=== PATIENT | female | born 1955 | race Caucasian/White ===

== ENCOUNTER 2020-02-22 10:07 | Emergency (ER) | payer MEDICARE, MEDICAID, SELFPAY ==
--- NOTE | ~2020-02-22 | XR_ITS ---
EXAMINATION: XR chest 2V DATE: 02/22/2020 10:57 INDICATION: Cough TECHNIQUE: PA and lateral views of the chest are obtained. COMPARISON: 04/23/2018 FINDINGS: The lungs are free of acute opacities. There is no pleural effusion or pneumothorax. The ca rdiomediastinal silhouette is normal. There are bridging osteophytes at multiple levels in the spine, consistent with diffuse idiopathic skeletal hyperostosis (DISH). Surgical clips in the right upper q uadrant are likely from prior cholecystectomy. IMPRESSION: 1. No acute cardiopulmonary abnormality. Reviewed, dictated and finalized at location A. [employer]
[2020-02-22 10:22] VITALS: BP 141/58; PULSE 93; RESP 24; TEMP 37.6; O2SAT 95
--- NOTE | 2020-02-22 10:51 | ED.GENADULT ---
HPI - General Adult General Chief complaint: Upper Respiratory Infection Stated complaint: Cough,Fever Time Seen by Provider: 02/22/20 10:41 Source: patient and RN notes reviewed Mode of arrival: ambulatory Limitations: no limitations History of Present Illness HPI narrative: Patient presents today complaining of a 2-day history of cough with yellow sputum, fever up to 101, headache, body aches, sweats, bilateral ear pain, sore throat, fatigue. Denies shortness of breath, nausea, vomiting, diarrhea. She has been taking Tylenol, which does bring down her fever. She had a COVID-19 test done 6 weeks ago that was negative, when she had similar symptoms. History of RA for which she takes methotrexate and Plaquenil. Also has history of CKD, fibromyalgia, pancreatitis. She is a non-smoker. MD complaint: Fever, cough, body aches Related Data Home Medications Medication Instructions Recorded Confirmed duloxetine 30 mg PO BID 02/22/20 02/22/20 fluticasone propionate 2 spray INTRANASAL DAILY 02/22/20 02/22/20 folic acid 1 mg DAILY 02/22/20 02/22/20 furosemide 40 mg DAILY 02/22/20 02/22/20 hydrochlorothiazide 25 mg DAILY 02/22/20 02/22/20 hydroxychloroquine 200 mg BID 02/22/20 02/22/20 lisinopril 10 mg DAILY 02/22/20 02/22/20 methotrexate (PF) [Otrexup (PF)] 5 mg SUBCUT WEEKLY 02/22/20 02/22/20 omeprazole 40 mg DAILY 02/22/20 02/22/20 pregabalin 75 mg BID 02/22/20 02/22/20 sulfasalazine 1,500 mg PO BID 02/22/20 02/22/20 tramadol 50 mg QID 02/22/20 02/22/20 trazodone 100 mg HS 02/22/20 02/22/20 Allergies Allergy/AdvReac Type Severity Reaction Status Date / Time cephalexin Allergy Unknown Hives Unverified 02/22/20 10:30 erythromycin base Allergy Unknown Hives Verified 02/22/20 10:30 Review of Systems Review of Systems: Narrative: CONSTITUTIONAL:+ Body aches, fatigue, fever, sweats EYES: Denies visual changes, redness, or discharge. ENT: Denies rhinorrhea, . + Sore throat, bilateral ear pain, congestion CARDIOVASCULAR: Denies chest pain, palpitations, or edema. RESPIRATORY: Denies dyspnea.+ Productive cough GASTROINTESTINAL: Denies abdominal pain, nausea, vomiting, or diarrhea. GENITOURINARY: Denies dysuria or hematuria. SKIN: Denies rash, itching, or wounds. MUSCULOSKELETAL: Denies back pain, joint pain, or myalgia. NEUROLOGIC: Denies numbness, tingling, or weakness.+ Headache PSYCH: Denies depression or anxiety. PMFSH Past Medical History Medical History (Updated 02/22/20 @ 11:19 by Marilu Bonilla, [facility], ) Chronic kidney disease Fibromyalgia GERD (gastroesophageal reflux disease) Hypertension Pancreatitis Rheumatoid arthritis Social History Social History (Updated 02/22/20 @ 10:54 by Marilu Bonilla, [facility], ) Smoking status: Never smoker Gender identity (if verbalized by the patient): Female Comments At time of signature, I have reviewed and agree with nursing past medical, surgical, social and family history unless otherwise noted. Please see nursing chart for further information. There is no relevant family history pertinent to the presenting complaint Exam Narrative: Exam Narrative: GENERAL: Mildly ill-appearing, well-nourished, and in no acute distress. HEAD: Normocephalic, atraumatic. EYES: EOMI. No redness or drainage. Conjunctivae normal. ENT: Mucous membranes pink and moist. Nares clear. No rhinorrhea. TMs normal bilaterally. Throat normal. Uvula midline. NECK: Normal AROM. Supple. No lymphadenitis noted, patient reports bilateral anterior lymph node chain tenderness with palpation. CHEST: No respiratory distress. Clear to auscultation. +tachypnea, but non labored. HEART: Regular rate and rhythm. No murmur appreciated. Normal peripheral pulses. ABDOMEN: Soft, nontender, nondistended, normal active bowel sounds. MUSCULOSKELETAL: No bony tenderness. EXTREMITIES: Normal range of motion. No edema. SKIN: Warm, dry, no rash. Capillary refill normal. Normal skin turgor. NEURO: No focal deficit
== END 2020-02-22 11:25 | disposition home or self-care (01) ==
PROVIDERS: Emergency Provider Nurse Practitioner
DX: B34.9 Viral infection, unspecified (principal); J40 Bronchitis, not specified as acute or chronic; I12.9 Hypertensive chronic kidney disease with stage 1 through stage 4 chronic kidney disease, or unspecified chronic kidney disease; N18.9 Chronic kidney disease, unspecified; M79.7 Fibromyalgia; K21.9 Gastro-esophageal reflux disease without esophagitis; M06.9 Rheumatoid arthritis, unspecified
CPT/HCPCS: 71046; 87081; 87804; 87880; 99213; G0463